=== PATIENT | female | born 1935 | race Caucasian/White ===

== ENCOUNTER 2017-05-21 23:03 | Inpatient (IN) | payer MEDICARE ==
[~2017-05-21] VITALS: Ht 162.6 cm; Wt 83.9 kg
[~2017-05-21 23:03] MED LIST: ACET325T14 PO; ALLEGRA PO; CITA20TA5 PO; FENO160T PO; FEXO180T72 PO; FOLIC ACID PO; FURO-93 PO; GLYB1TAB12 PO; IBUP200C5 PO; IPRA15SP INH; LEVO50TA5 PO; MV,C400T2 PO; OXYGEN INH; PANT40TA5 PO; POTA10TA11 PO; RANI150T8 PO; SULF500T36 PO; TRAM50TA2 PO; [UNRECOGNIZED DRUG - OTHER] NAS
[2017-05-21] MEDS ORDERED: ACETAMINOPHEN 325 MG TABLET PO ONE (23:30)
[2017-05-21] MEDS ORDERED: SODIUM CHLORIDE 0.9% 1,000ML IVBOLUS ONE (23:30)
[2017-05-21] MEDS ORDERED: ACETAMINOPHEN 325 MG TABLET ONE (23:30)
[2017-05-22 00:05] LABS: BASOPHILS # (AUTO) 0.03 x10^3/uL (0-0.1); BASOPHILS % (AUTO) 0 % (0-1); EOSINOPHILS # (AUTO) 0.01 x10^3/uL (0-0.4); EOSINOPHILS % (AUTO) 0 % (1-7); LYMPHOCYTES # (AUTO) 1.62 x10^3/uL (1-3.4); LYMPHOCYTES % (AUTO) 23 % (22-44); MD NO; MEAN CORPUSCULAR HEMOGLOBIN 27.2 pg (27.0-34.8); MEAN CORPUSCULAR HGB CONC 32.7 g/dL (32.4-35.8); MEAN CORPUSCULAR VOLUME 83.1 fL (80-100); MEAN PLATELET VOLUME 7.3 fL (7.4-10.4); MONOCYTES # (AUTO) 0.64 x10^3/uL (0.2-0.8); MONOCYTES % (AUTO) 9 % (2-9); NEUTROPHILS % (AUTO) 68 % (42-75); PLATELET COUNT 215 x10^3/uL (130-400); RED BLOOD COUNT 3.46 x10^6/uL (3.82-5.3)
[2017-05-22 00:13] LABS: CULTURE INDICATED? YES; MICROSCOPIC INDICATED
[2017-05-22 00:19] LABS: ALANINE AMINOTRANSFERASE 21 U/L (12-78); ALBUMIN 3.5 g/dL (3.4-5.0); ANION GAP 7 mmol/L (5-15); CALCIUM 9.2 mg/dL (8.5-10.1); CHLORIDE 100 mmol/L (98-107); CREATININE 0.81 mg/dL (0.55-1.02)
[2017-05-22 00:23] LABS: ALKALINE PHOSPHATASE 58 U/L (45-117); BILIRUBIN,TOTAL 0.5 mg/dL (0.2-1.0); TOTAL PROTEIN 7.9 g/dL (6.4-8.2)
[2017-05-22] MEDS ORDERED: CEFTRIAXONE PMX 1GM/50ML 50 ML ONE (00:58)
[2017-05-22] MEDS ORDERED: CEFTRIAXONE PMX 1GM/50ML 50 ML IV ONE (01:00)
[2017-05-22 01:07] LABS: RAPID INFLUENZA A POSITIVE (Negative); RAPID INFLUENZA B Negative (Negative)
[2017-05-22] MEDS ORDERED: OSELTAMIVIR 75 MG CAPSULE PO ONE (01:30)
[2017-05-22] MEDS ORDERED: LABETALOL 5MG/ML, 20ML IVPush PRN (03:00)
[2017-05-22] MEDS ORDERED: TEMAZEPAM 15 MG CAPSULE PO PRN (03:00)
[2017-05-22] MEDS ORDERED: DOCUSATE 100 MG CAPSULE PO PRN (03:00)
[2017-05-22] MEDS ORDERED: ONDANSETRON 2MG/ML, 2ML IVPush PRN (03:00)
[2017-05-22] MEDS ORDERED: POLYETHYLENE GLYCOL 17 GM PACKET PO PRN (03:00)
[2017-05-22] MEDS ORDERED: ONDANSETRON ODT 4 MG PO PRN (03:00)
[2017-05-22 03:03] VITALS: BP 114/45
[2017-05-22] MEDS ORDERED: ALBUTEROL/IPRATROPIUM 2.5MG/0.5MG, 3 ML ONE (03:09)
[2017-05-22 03:14] LABS: HEMOGLOBIN A1C 6.9 % (4.2-6.3)
[2017-05-22] MEDS ORDERED: ALBUTEROL/IPRATROPIUM 2.5MG/0.5MG, 3 ML NPPB PRN (03:30)
[2017-05-22] MEDS: ENOXAPARIN 40 MG/0.4 ML SQ SCH (04:15)
[2017-05-22] MEDS: POTASSIUM CHLORIDE 10 MEQ TABLET.ER PO SCH ×2 (04:15→08:11)
[2017-05-22] MEDS: LEVOTHYROXINE 50 MCG TABLET PO SCH (05:30)
[2017-05-22] MEDS: ALBUTEROL/IPRATROPIUM 2.5MG/0.5MG, 3 ML NPPB SCH ×4 (06:45→19:55)
[2017-05-22 07:12] VITALS: BP 128/52
[2017-05-22] MEDS: PANTOPROZOLE 40MG TABLET PO SCH (08:11)
[2017-05-22] MEDS: FENOFIBRATE 145 MG TABLET PO SCH (08:11)
[2017-05-22] MEDS: OSELTAMIVIR 30 MG CAPSULE PO SCH ×2 (08:11→20:50)
[2017-05-22] MEDS ORDERED: FENOFIBRATE 145 MG TABLET PO SCH (09:00)
[2017-05-22] MEDS: INSULIN ASPART 100 UNITS/ML, PEN SQ-INSULIN SCH ×4 (09:23→20:51)
[2017-05-22 14:25] VITALS: BP 119/61
[2017-05-22 20:16] LABS: OCCULT BLOOD NEGATIVE (NEGATIVE)
[2017-05-22] MEDS: CITALOPRAM 20 MG TABLET PO SCH (20:50)
[2017-05-22 22:06] VITALS: BP 90/52
[2017-05-22 22:30] VITALS: BP 105/60
[2017-05-22] MEDS: ACETAMINOPHEN 325 MG TABLET PO PRN (23:11)
[2017-05-23] MEDS ORDERED: CEFTRIAXONE PMX 1GM/50ML 50 ML IV SCH (01:00)
[2017-05-23] MEDS: GUAIFENESIN/DM 200-20MG, 10ML UDC PO PRN ×3 (01:40→22:23)
[2017-05-23] MEDS: CEFTRIAXONE 1,000 MG in SODIUM CHLORIDE 0.9% 50 ML IV SCH (01:40)
[2017-05-23 04:00] VITALS: BP 128/55
[2017-05-23] MEDS: ENOXAPARIN 40 MG/0.4 ML SQ SCH (04:06)
[2017-05-23 05:10] LABS: BASOPHILS # (AUTO) 0.02 x10^3/uL (0-0.1); BASOPHILS % (AUTO) 0 % (0-1); EOSINOPHILS # (AUTO) 0.07 x10^3/uL (0-0.4); EOSINOPHILS % (AUTO) 2 % (1-7); LYMPHOCYTES # (AUTO) 1.41 x10^3/uL (1-3.4); LYMPHOCYTES % (AUTO) 32 % (22-44); MD NO; MEAN CORPUSCULAR HEMOGLOBIN 26.9 pg (27.0-34.8); MEAN CORPUSCULAR HGB CONC 32.7 g/dL (32.4-35.8); MEAN CORPUSCULAR VOLUME 82.5 fL (80-100); MEAN PLATELET VOLUME 7.4 fL (7.4-10.4); MONOCYTES # (AUTO) 0.42 x10^3/uL (0.2-0.8); MONOCYTES % (AUTO) 10 % (2-9); NEUTROPHILS # (AUTO) 2.44 x10^3/uL (1.8-6.8); NEUTROPHILS % (AUTO) 56 % (42-75); PLATELET COUNT 172 x10^3/uL (130-400); RED BLOOD COUNT 3.26 x10^6/uL (3.82-5.3); RED CELL DISTRIBUTION WIDTH 16.3 % (9.6-15.2)
[2017-05-23 05:11] LABS: CHLORIDE 105 mmol/L (98-107)
[2017-05-23] MEDS: LEVOTHYROXINE 50 MCG TABLET PO SCH (05:34)
[2017-05-23 05:36] LABS: % IRON SATURATION 9 % (20-55); ALANINE AMINOTRANSFERASE 23 U/L (12-78); ALKALINE PHOSPHATASE 51 U/L (45-117); ANION GAP 6 mmol/L (5-15); BILIRUBIN,TOTAL 0.4 mg/dL (0.2-1.0); CREATININE 0.63 mg/dL (0.55-1.02); IRON LEVEL 27 mcg/dL (50-170); TOTAL IRON BINDING CAPACITY 317 mcg/dL (250-450); TOTAL PROTEIN 7.4 g/dL (6.4-8.2)
[2017-05-23] MEDS ORDERED: MAGNESIUM SULFATE PMX 2GM/50ML 50 ML IV ONE (07:30)
[2017-05-23] MEDS ORDERED: POTASSIUM CHLORIDE 20 MEQ TAB.ER.PRT PO ONE (07:30)
[2017-05-23 07:47] VITALS: BP 129/69
[2017-05-23] MEDS: INSULIN ASPART 100 UNITS/ML, PEN SQ-INSULIN SCH ×4 (07:50→20:41)
[2017-05-23] MEDS: ALBUTEROL/IPRATROPIUM 2.5MG/0.5MG, 3 ML NPPB SCH ×4 (07:54→19:52)
[2017-05-23] MEDS: FENOFIBRATE 145 MG TABLET PO SCH (08:50)
[2017-05-23] MEDS: POTASSIUM CHLORIDE 10 MEQ TABLET.ER PO SCH (08:50)
[2017-05-23] MEDS: OSELTAMIVIR 30 MG CAPSULE PO SCH ×2 (08:50→20:31)
[2017-05-23] MEDS: PANTOPROZOLE 40MG TABLET PO SCH (08:50)
[2017-05-23 14:01] VITALS: BP 100/55
[2017-05-23 19:39] VITALS: BP 131/65
[2017-05-23] MEDS: CITALOPRAM 20 MG TABLET PO SCH (20:31)
[2017-05-24] MEDS: CEFTRIAXONE 1,000 MG in SODIUM CHLORIDE 0.9% 50 ML IV SCH (01:48)
[2017-05-24 03:57] VITALS: BP 132/59
[2017-05-24] MEDS: ENOXAPARIN 40 MG/0.4 ML SQ SCH (04:12)
[2017-05-24] MEDS: ACETAMINOPHEN 325 MG TABLET PO PRN (04:13)
[2017-05-24] MEDS: LEVOTHYROXINE 50 MCG TABLET PO SCH (05:53)
[2017-05-24] MEDS: ALBUTEROL/IPRATROPIUM 2.5MG/0.5MG, 3 ML NPPB SCH ×4 (07:41→20:07)
[2017-05-24] MEDS: OSELTAMIVIR 30 MG CAPSULE PO SCH ×2 (08:50→20:56)
[2017-05-24] MEDS: FENOFIBRATE 145 MG TABLET PO SCH (08:50)
[2017-05-24] MEDS: POTASSIUM CHLORIDE 10 MEQ TABLET.ER PO SCH (08:50)
[2017-05-24] MEDS: PANTOPROZOLE 40MG TABLET PO SCH (08:50)
[2017-05-24] MEDS: INSULIN ASPART 100 UNITS/ML, PEN SQ-INSULIN SCH ×4 (08:50→20:57)
[2017-05-24 13:15] VITALS: BP 109/59
[2017-05-24] MEDS ORDERED: SULF1TAB24 PO (15:09)
[2017-05-24] MEDS ORDERED: OSEL75CA PO (15:09)
[2017-05-24] MEDS: GUAIFENESIN/DM 200-20MG, 10ML UDC PO PRN (17:00)
[2017-05-24 20:26] VITALS: BP 106/49
[2017-05-24] MEDS: CITALOPRAM 20 MG TABLET PO SCH (20:56)
[2017-05-25] MEDS: CEFTRIAXONE 1,000 MG in SODIUM CHLORIDE 0.9% 50 ML IV SCH (01:42)
[2017-05-25 02:59] VITALS: BP 132/68
[2017-05-25] MEDS: ENOXAPARIN 40 MG/0.4 ML SQ SCH (03:12)
[2017-05-25] MEDS: LEVOTHYROXINE 50 MCG TABLET PO SCH (05:44)
[2017-05-25] MEDS: ALBUTEROL/IPRATROPIUM 2.5MG/0.5MG, 3 ML NPPB SCH ×4 (06:33→19:37)
[2017-05-25 07:52] VITALS: BP 129/65
[2017-05-25] MEDS: INSULIN ASPART 100 UNITS/ML, PEN SQ-INSULIN SCH ×4 (08:02→21:00)
[2017-05-25] MEDS: FENOFIBRATE 145 MG TABLET PO SCH (08:02)
[2017-05-25] MEDS: PANTOPROZOLE 40MG TABLET PO SCH (08:02)
[2017-05-25] MEDS: OSELTAMIVIR 30 MG CAPSULE PO SCH ×2 (08:02→20:59)
[2017-05-25] MEDS: POTASSIUM CHLORIDE 10 MEQ TABLET.ER PO SCH (08:02)
[2017-05-25 10:09] LABS: ANION GAP 7 mmol/L (5-15); CALCIUM 8.7 mg/dL (8.5-10.1); CHLORIDE 102 mmol/L (98-107); CREATININE 0.75 mg/dL (0.55-1.02)
[2017-05-25] MEDS: GUAIFENESIN/DM 200-20MG, 10ML UDC PO PRN (11:41)
[2017-05-25 13:37] VITALS: BP 146/79
[2017-05-25] MEDS: ACETAMINOPHEN 325 MG TABLET PO PRN ×2 (14:08→21:08)
[2017-05-25 19:54] VITALS: BP 107/50
[2017-05-25] MEDS: CITALOPRAM 20 MG TABLET PO SCH (20:59)
[2017-05-25] MEDS: SULFAMETH./TRIMETHOPRIM DS 800MG/160MG TABLET PO SCH (20:59)
[2017-05-26 00:38] VITALS: BP 138/69
[2017-05-26] MEDS ORDERED: LORazepam 0.5MG TABLET ONE (00:55)
[2017-05-26] MEDS ORDERED: LORazepam 0.5MG TABLET PO ONE (01:00)
[2017-05-26] MEDS: ACETAMINOPHEN 325 MG TABLET PO PRN ×2 (01:01→12:15)
[2017-05-26] MEDS: ENOXAPARIN 40 MG/0.4 ML SQ SCH (06:17)
[2017-05-26] MEDS: LEVOTHYROXINE 50 MCG TABLET PO SCH (06:18)
[2017-05-26] MEDS: INSULIN ASPART 100 UNITS/ML, PEN SQ-INSULIN SCH ×2 (07:00→11:55)
[2017-05-26] MEDS: ALBUTEROL/IPRATROPIUM 2.5MG/0.5MG, 3 ML NPPB SCH ×3 (07:00→14:15)
[2017-05-26 09:40] VITALS: BP 152/73
[2017-05-26] MEDS ORDERED: SULF1TAB24 PO (10:03)
[2017-05-26] MEDS: PANTOPROZOLE 40MG TABLET PO SCH (10:19)
[2017-05-26] MEDS: POTASSIUM CHLORIDE 10 MEQ TABLET.ER PO SCH (10:19)
[2017-05-26] MEDS: OSELTAMIVIR 30 MG CAPSULE PO SCH (10:19)
[2017-05-26] MEDS: FENOFIBRATE 145 MG TABLET PO SCH (10:19)
[2017-05-26] MEDS: SULFAMETH./TRIMETHOPRIM DS 800MG/160MG TABLET PO SCH (10:19)
[2017-05-26 12:31] VITALS: BP 152/67
== END 2017-05-26 13:05 | DRG 193 ==
LOC: ED 05-22 00:32 → EDIP 05-22 01:21 → 5SO 05-22 02:45 → 4WST 05-22 08:37
PROVIDERS: ADMIT Internal Medicine; ATTEND Internal Medicine
PROC: 0T9B70Z Drainage of Bladder with Drainage Device, Via Natural or Artificial Opening (ICD-10-PCS; principal; 2017-05-21)
DX: J10.1 Influenza due to other identified influenza virus with other respiratory manifestations (principal); J96.21 Acute and chronic respiratory failure with hypoxia; G93.41 Metabolic encephalopathy; J44.1 Chronic obstructive pulmonary disease with (acute) exacerbation; E11.9 Type 2 diabetes mellitus without complications; B96.1 Klebsiella pneumoniae [K. pneumoniae] as the cause of diseases classified elsewhere; N39.0 Urinary tract infection, site not specified; Z99.81 Dependence on supplemental oxygen; B96.89 Other specified bacterial agents as the cause of diseases classified elsewhere; D64.9 Anemia, unspecified; E03.9 Hypothyroidism, unspecified; W01.0XXA Fall on same level from slipping, tripping and stumbling without subsequent striking against object, initial encounter; E87.6 Hypokalemia; F32.9 Major depressive disorder, single episode, unspecified; E86.0 Dehydration; K21.9 Gastro-esophageal reflux disease without esophagitis; R32 Unspecified urinary incontinence; Z87.891 Personal history of nicotine dependence; Z90.710 Acquired absence of both cervix and uterus; Z88.1 Allergy status to other antibiotic agents; Z88.8 Allergy status to other drugs, medicaments and biological substances; Y93.89 Activity, other specified; Y92.89 Other specified places as the place of occurrence of the external cause
CPT/HCPCS: 36415; 70450; 71045; 80048; 80053; 81001; 82272; 82607; 82728; 82962; 83036; 83540; 83550; 83605; 83735; 84100; 84145; 85025; 87077; 87086; 87186; 87400; 93005; 94640; 96365; J0696; J1650; J1815; J7620; Q0162; J3475; J7030

== ENCOUNTER → 2017-11-10 | Outpatient (CLI) | payer MEDICARE ==
[~2017-11-10] MED LIST changes: -CITA20TA5 PO; +CITA20TA6 PO; +GLYB-135 PO; -GLYB1TAB12 PO; +OSEL75CA PO; +RANI150T23 PO; -RANI150T8 PO; +SULF1TAB24 PO
== END | disposition home or self-care (01) ==
LOC: CARD 14:26
PROVIDERS: ATTEND Nurse Practitioner Family
DX: J43.9 Emphysema, unspecified (principal); G47.33 Obstructive sleep apnea (adult) (pediatric)
CPT/HCPCS: 94060; 94726; 94729

== ENCOUNTER 2018-05-17 18:42 | Inpatient (IN) | payer MEDICARE ==
[~2018-05-17] VITALS: Ht 162.6 cm; Wt 92.4 kg
[~2018-05-17 18:42] MED LIST changes: +IBUP-1623 PO; -IBUP200C5 PO
[2018-05-17] MEDS ORDERED: methylPREDNISolone SOD SUCC 125 MG/2 ML ONE (18:56)
[2018-05-17] MEDS ORDERED: SODIUM CHLORIDE FLUSH 10ML SYR IVF ONE (19:00)
[2018-05-17] MEDS ORDERED: SODIUM CHLORIDE 0.9% 1,000ML IVBOLUS ONE ×2 (19:00→20:00)
[2018-05-17] MEDS ORDERED: methylPREDNISolone SOD SUCC 125 MG/2 ML IVP ONE (19:00)
--- NOTE | 2018-05-17 19:20 | NUR ---
LABS DRAWN, PT MEDICATED. PT ON OPTIFLOW NOW. PT GIVEN MULTIPLE WARM BLANKETS PER REQUEST. POC DISCUSSED. PT DENIES FURTHER NEEDS AT THIS TIME.
[2018-05-17 19:28] LABS: BASOPHILS # (AUTO) 0.01 x10^3/uL (0-0.1); BASOPHILS % (AUTO) 0 % (0-1); EOSINOPHILS # (AUTO) 0.01 x10^3/uL (0-0.4); EOSINOPHILS % (AUTO) 0 % (1-7); LYMPHOCYTES # (AUTO) 1.57 x10^3/uL (1-3.4); LYMPHOCYTES % (AUTO) 25 % (22-44); MD NO; MEAN CORPUSCULAR HEMOGLOBIN 29.6 pg (27.0-34.8); MEAN CORPUSCULAR HGB CONC 33.4 g/dL (32.4-35.8); MEAN CORPUSCULAR VOLUME 88.4 fL (80-100); MEAN PLATELET VOLUME 7.6 fL (7.4-10.4); MONOCYTES # (AUTO) 0.12 x10^3/uL (0.2-0.8); MONOCYTES % (AUTO) 2 % (2-9); NEUTROPHILS # (AUTO) 4.61 x10^3/uL (1.8-6.8); NEUTROPHILS % (AUTO) 73 % (42-75); PLATELET COUNT 155 x10^3/uL (130-400); RED BLOOD COUNT 3.17 x10^6/uL (3.82-5.3)
[2018-05-17 19:35] LABS: INTERNATIONAL NORMALIZED RATIO 1.18 (0.93-1.1); PROTHROMBIN TIME 12.4 Seconds (9.6-11.5)
[2018-05-17 19:36] LABS: ALANINE AMINOTRANSFERASE 25 U/L (12-78); ANION GAP 13 mmol/L (5-15); CHLORIDE 105 mmol/L (98-107); CREATININE 1.32 mg/dL (0.55-1.02)
[2018-05-17] MEDS ORDERED: ALBUTEROL SULFATE 2.5 MG/3 ML ONE (19:36)
[2018-05-17 19:41] LABS: ALKALINE PHOSPHATASE 50 U/L (45-117); BILIRUBIN,TOTAL 0.9 mg/dL (0.2-1.0); TOTAL PROTEIN 6.2 g/dL (6.4-8.2)
[2018-05-17] MEDS ORDERED: CEFTRIAXONE PMX 1GM/50ML 50 ML ONE (19:42)
--- NOTE | 2018-05-17 19:51 | NUR ---
FLU SWAB OBTAINED AND TUBED TO LAB. ABX INFUSING POST BCX2. POC DISCUSSED. PT DENIES FURTHER NEEDS AT THIS TIME.
[2018-05-17] MEDS ORDERED: CEFTRIAXONE PMX 1GM/50ML 50 ML IV ONE ×2 (20:00→22:00)
[2018-05-17] MEDS ORDERED: AZITHROMYCIN 500 MG in SODIUM CHLORIDE 0.9% 250 ML IV ONE (20:00)
[2018-05-17] MEDS ORDERED: SITA1TAB PO (20:13)
[2018-05-17] MEDS ORDERED: HEPARIN 25,000 UNITS/500ML PMX 500 ML ONE (20:20)
[2018-05-17] MEDS ORDERED: HEPARIN 5,000 UNITS/ML, 1ML ONE (20:20)
[2018-05-17 20:25] LABS: RAPID INFLUENZA A Negative (Negative); RAPID INFLUENZA B Negative (Negative)
[2018-05-17] MEDS ORDERED: HEPARIN 5,000 UNITS/ML, 1ML IV ONE ×2 (20:30)
[2018-05-17] MEDS ORDERED: HEPARIN 25,000 UNITS/500ML PMX 500 ML IV PRN ×2 (20:30)
[2018-05-17] MEDS ORDERED: HEPARIN 5,000 UNITS/ML, 1ML IV PRN ×2 (20:30)
--- NOTE | 2018-05-17 21:15 | NUR ---
MD AWARE OF PTS DECREASING BP. CONSENT FOR CENTRAL LINE SIGNED BY PTS, THIS RN, AND MD. POC DISCUSSED. AWAITING MD FOR CENTRAL LINE.
--- NOTE | 2018-05-17 21:36 | NUR ---
ADMITTING MD AT BEDSIDE
[2018-05-17] MEDS: SODIUM CHLORIDE 0.9% 1,000 ML IV SCH (21:51)
[2018-05-17] MEDS ORDERED: ONDANSETRON ODT 4 MG PO PRN (22:00)
[2018-05-17] MEDS: methylPREDNISolone SOD SUCC 125 MG/2 ML IVPush SCH (22:00)
[2018-05-17] MEDS ORDERED: OXYcodone IR 5MG TABLET PO PRN (22:00)
[2018-05-17] MEDS ORDERED: POLYETHYLENE GLYCOL 17 GM PACKET PO PRN (22:00)
[2018-05-17] MEDS ORDERED: hydrALAzine 20 MG/ML, 1ML IVPush PRN (22:00)
[2018-05-17] MEDS ORDERED: PROMETHAZINE 25 MG/ML, 1ML IM PRN (22:00)
[2018-05-17] MEDS ORDERED: morphine SULFATE 10 MG/ML, 1ML IVPush PRN (22:00)
[2018-05-17] MEDS ORDERED: LABETALOL 5MG/ML, 20ML IVPush PRN (22:00)
[2018-05-17] MEDS ORDERED: DOCUSATE 100 MG CAPSULE PO PRN (22:00)
[2018-05-17] MEDS ORDERED: ONDANSETRON 2MG/ML, 2ML IVPush PRN (22:00)
[2018-05-17] MEDS ORDERED: NITROGLYCERIN 0.4 MG BOTTLE (25 TABS) SL PRN (22:00)
[2018-05-17] MEDS ORDERED: BISACODYL 10 MG SUPP PR PRN (22:00)
[2018-05-17 22:21] LABS: FREE T4 (FREE THYROXINE) 1.38 ng/dL (0.76-1.46); THYROID STIMULATING HORMONE 0.972 mIU/L (0.358-3.740)
--- NOTE | 2018-05-17 22:26 | NUR ---
PT TO CT AT THIS TIME
[2018-05-17] MEDS: INSULIN LISPRO 100 UNITS/ML, PEN SQ-INSULIN SCH (22:30)
--- NOTE | 2018-05-17 22:38 | NUR ---
PT HAS RETURNED FROM CT
--- NOTE | 2018-05-17 23:02 | NUR ---
CENTRAL LINE PLACED BY DR MOORE. RAD CALLED FOR CONFIRMATION CXR
[2018-05-18] MEDS ORDERED: NOREPINEPHRINE 4 MG in SODIUM CHLORIDE 0.9% 246 ML IV PRN
--- NOTE | 2018-05-18 00:02 | NUR ---
MED REQUEST TUBED TO PHARM. PT SLEEPING INTERMITENTLY, FAMILY AT BEDSIDE.
--- NOTE | 2018-05-18 00:37 | NUR ---
CRITICAL TROP CALLED TO DR EARL. NO NEW ORDERS TO BE PLACED AT THIS TIME.
[2018-05-18] MEDS ORDERED: ALBUTEROL/IPRATROPIUM 2.5MG/0.5MG, 3 ML ONE (00:43)
--- NOTE | 2018-05-18 01:30 | NUR ---
TASK RN: PT ASSISTED TO [facility]. PT APPEARS IN MILD RESPIRATORY DISTRESS, SPEAKING IN 3-5 WORD SENTENCES. OPTI FLOW IN PLACE. SPO2 >90%. BP/SPO2/ECG MONITORING IN PLACE. SINUS TACH ON MONITOR. FAMILY AT BEDSIDE.
[2018-05-18] MEDS ORDERED: ATOR20TA PO (02:06)
[2018-05-18] MEDS ORDERED: METF500T17 PO (02:06)
[2018-05-18] MEDS ORDERED: ZOLP-413 PO (02:06)
[2018-05-18] MEDS ORDERED: PHENERGAN CODEINE PO (02:06)
[2018-05-18] MEDS ORDERED: HYDR-3240 PO (02:06)
[2018-05-18] MEDS ORDERED: GABA300C PO (02:06)
--- NOTE | 2018-05-18 02:07 | NUR ---
PTS DAIANA PROVIDED UPDATED MED REC. MED REC UPDATED IN COMPUTER.
[2018-05-18 03:00] VITALS: BP 104/56
[2018-05-18] MEDS: ACETAMINOPHEN 325 MG TABLET PO PRN ×3 (03:00→21:27)
[2018-05-18] MEDS ORDERED: ALBUTEROL/IPRATROPIUM 2.5MG/0.5MG, 3 ML NPPB PRN (03:00)
[2018-05-18] MEDS: ALBUTEROL/IPRATROPIUM 2.5MG/0.5MG, 3 ML NPPB SCH ×6 (03:00→23:59)
[2018-05-18 04:00] VITALS: BP 101/51
[2018-05-18] MEDS ORDERED: HEPARIN 5,000 UNITS/ML, 1ML ONE (04:19)
[2018-05-18] MEDS: methylPREDNISolone SOD SUCC 125 MG/2 ML IVPush SCH ×4 (04:24→22:52)
[2018-05-18] MEDS ORDERED: HEPARIN 5,000 UNITS/ML, 1ML IV ONE (04:30)
[2018-05-18] MEDS ORDERED: HEPARIN 5,000 UNITS/ML, 1ML IV PRN (04:30)
[2018-05-18] MEDS ORDERED: HEPARIN 25,000 UNITS/500ML PMX 500 ML IV PRN ×3 (04:30)
[2018-05-18] MEDS: HEPARIN 5,000 UNITS/ML, 1ML IV PRN ×3 (04:35→18:44)
[2018-05-18] MEDS: SODIUM CHLORIDE 0.9% 1,000 ML IV SCH ×3 (04:40→23:41)
[2018-05-18 05:13] LABS: MEAN CORPUSCULAR HEMOGLOBIN 28.1 pg (27.0-34.8); MEAN CORPUSCULAR HGB CONC 31.5 g/dL (32.4-35.8); MEAN CORPUSCULAR VOLUME 89.2 fL (80-100); MEAN PLATELET VOLUME 7.8 fL (7.4-10.4); PLATELET COUNT 126 x10^3/uL (130-400); RED BLOOD COUNT 2.82 x10^6/uL (3.82-5.3); RED CELL DISTRIBUTION WIDTH 17.5 % (9.6-15.2)
[2018-05-18 05:25] LABS: CHLORIDE 106 mmol/L (98-107)
[2018-05-18 05:38] LABS: MD YES
[2018-05-18 05:42] LABS: BAND#(MANUAL) 1.74 x10^3/uL; BANDS%(MANUAL) 26 % (0-7); LYMPH#(MANUAL) 0.94 x10^3/uL (1-3.4); LYMPHS% (MANUAL) 14 % (22-44); METAMYELOCYTES# (MANUAL) 0.07 x10^3/uL (0-0); METAMYELOCYTES% (MANUAL) 1 % (0-1); SEG#(MANUAL) 3.95 x10^3/uL (1.8-6.8); SEGS% (MANUAL) 59 % (42-75)
[2018-05-18 05:44] LABS: ANISOCYTOSIS 1+
[2018-05-18 05:48] LABS: <PLATELET ESTIMATE> ADEQUATE; <PLT MORPHOLOGY> NORMAL PLT MORPH
[2018-05-18 05:52] LABS: ALANINE AMINOTRANSFERASE 22 U/L (12-78); ALBUMIN 2.6 g/dL (3.4-5.0); ALKALINE PHOSPHATASE 26 U/L (45-117); ANION GAP 13 mmol/L (5-15); BILIRUBIN,TOTAL 0.6 mg/dL (0.2-1.0); CALCIUM 7.5 mg/dL (8.5-10.1); CHOL/HDL RATIO 2.2; CHOLESTEROL, TOTAL 117 mg/dL (140-239); CREATININE 1.13 mg/dL (0.55-1.02); HDL CHOL % 46 % (28-40); HDL CHOLESTEROL (DIRECT) 54 mg/dL (40-60); LDL CHOLESTEROL,CALCULATED 37 mg/dL (54-169); LDL/HDL RATIO 0.7 (0.5-3.0); TOTAL PROTEIN 5.6 g/dL (6.4-8.2); TRIGLYCERIDES 131 mg/dL (50-200); VLDL CHOLESTEROL 26 mg/dL (0-25)
[2018-05-18] MEDS ORDERED: ASPIRIN 325 MG TABLET EC PO SCH (06:00)
[2018-05-18] MEDS: LEVOTHYROXINE 50 MCG TABLET PO SCH (06:45)
[2018-05-18] MEDS: INSULIN LISPRO 100 UNITS/ML, PEN SQ-INSULIN SCH ×4 (07:10→20:28)
[2018-05-18 10:20] LABS: CULTURE INDICATED? YES; MICROSCOPIC INDICATED
[2018-05-18] MEDS ORDERED: MAGNESIUM SULFATE 4 GM in SODIUM CHLORIDE 0.9% 100 ML IV ONE (12:00)
[2018-05-18] MEDS ORDERED: MAGNESIUM SULFATE PMX 4GM/100M 100 ML IV ONE (12:10)
[2018-05-18] MEDS: MEROPENEM 1 GM in SODIUM CHLORIDE 0.9% 100 ML IV SCH ×2 (12:51→20:27)
[2018-05-18] MEDS: LINEZOLID PMX 600MG/300ML 300 ML IV SCH (12:52)
[2018-05-18] MEDS: INSULIN GLARGINE 100 UNITS/ML, PEN SQ-INSULIN SCH (13:05)
[2018-05-18] MEDS ORDERED: CEFTRIAXONE PMX 2GM/50ML 50 ML IV SCH (19:00)
[2018-05-18] MEDS ORDERED: AZITHROMYCIN 500 MG in SODIUM CHLORIDE 0.9% 250 ML IV SCH (20:00)
[2018-05-18] MEDS: ATORVASTATIN 20 MG TABLET PO SCH (20:28)
[2018-05-19] MEDS: INSULIN GLARGINE 100 UNITS/ML, PEN SQ-INSULIN SCH ×2 (01:03→11:23)
[2018-05-19] MEDS: HEPARIN 5,000 UNITS/ML, 1ML IV PRN (01:13)
[2018-05-19] MEDS: ALBUTEROL/IPRATROPIUM 2.5MG/0.5MG, 3 ML NPPB SCH ×5 (03:00→18:26)
[2018-05-19] MEDS: LINEZOLID PMX 600MG/300ML 300 ML IV SCH ×2 (03:24→14:33)
[2018-05-19 04:00] VITALS: BP 115/51
[2018-05-19] MEDS: methylPREDNISolone SOD SUCC 125 MG/2 ML IVPush SCH ×2 (04:18→10:28)
[2018-05-19 04:43] LABS: MEAN CORPUSCULAR HEMOGLOBIN 29.4 pg (27.0-34.8); MEAN CORPUSCULAR HGB CONC 33.2 g/dL (32.4-35.8); MEAN CORPUSCULAR VOLUME 88.6 fL (80-100); MEAN PLATELET VOLUME 7.9 fL (7.4-10.4); PLATELET COUNT 109 x10^3/uL (130-400); RED BLOOD COUNT 2.54 x10^6/uL (3.82-5.3); RED CELL DISTRIBUTION WIDTH 17.3 % (9.6-15.2)
[2018-05-19 04:51] LABS: ALBUMIN 2.4 g/dL (3.4-5.0); ANION GAP 8 mmol/L (5-15); CALCIUM 7.5 mg/dL (8.5-10.1); CHLORIDE 108 mmol/L (98-107)
[2018-05-19 05:10] LABS: ALANINE AMINOTRANSFERASE 22 U/L (12-78); ALKALINE PHOSPHATASE 30 U/L (45-117); BILIRUBIN,TOTAL 0.8 mg/dL (0.2-1.0); CREATININE 0.69 mg/dL (0.55-1.02); TOTAL PROTEIN 5.8 g/dL (6.4-8.2)
[2018-05-19] MEDS: ACETAMINOPHEN 325 MG TABLET PO PRN ×2 (05:14→18:24)
[2018-05-19] MEDS: ASPIRIN 81 MG TABLET EC PO SCH (05:15)
[2018-05-19] MEDS: LEVOTHYROXINE 50 MCG TABLET PO SCH (05:15)
[2018-05-19] MEDS: MEROPENEM 1 GM in SODIUM CHLORIDE 0.9% 100 ML IV SCH ×2 (05:38→13:09)
[2018-05-19 05:43] LABS: MD YES
[2018-05-19 05:57] LABS: BAND#(MANUAL) 1.86 x10^3/uL; BANDS%(MANUAL) 31 % (0-7); LYMPH#(MANUAL) 0.54 x10^3/uL (1-3.4); LYMPHS% (MANUAL) 9 % (22-44); MONOS#(MANUAL) 0.36 x10^3/uL (0.3-2.7); MONOS% (MANUAL) 6 % (2-9); SEG#(MANUAL) 3.24 x10^3/uL (1.8-6.8); SEGS% (MANUAL) 54 % (42-75)
[2018-05-19 05:59] LABS: <PLATELET ESTIMATE> DECREASED; OVALOCYTES 1+; POLYCHROMASIA 1+
[2018-05-19 06:00] LABS: <PLT MORPHOLOGY> NORMAL PLT MORPH
[2018-05-19] MEDS: INSULIN LISPRO 100 UNITS/ML, PEN SQ-INSULIN SCH ×4 (08:06→20:28)
[2018-05-19] MEDS ORDERED: OMNIPAQUE 350 MG/ML, 100ML BOTTLE ONE (11:55)
[2018-05-19] MEDS: SODIUM CHLORIDE 0.9% 1,000 ML IV SCH (13:10)
[2018-05-19] MEDS ORDERED: INSULIN GLARGINE 100 UNITS/ML, PEN SQ-INSULIN ONE (15:30)
[2018-05-19] MEDS: methylPREDNISolone SOD SUCC 40 MG/ML IVPush SCH (18:10)
[2018-05-19] MEDS: FAMOTIDINE 20 MG/2 ML IVPush SCH (18:10)
[2018-05-19] MEDS: ATORVASTATIN 20 MG TABLET PO SCH (20:20)
[2018-05-20] MEDS: ACETAMINOPHEN 325 MG TABLET PO PRN ×2 (00:14→19:19)
[2018-05-20] MEDS: INSULIN GLARGINE 100 UNITS/ML, PEN SQ-INSULIN SCH ×3 (00:17→23:47)
[2018-05-20] MEDS ORDERED: MEROPENEM 1 GM in SODIUM CHLORIDE 0.9% 100 ML IV SCH (01:00)
[2018-05-20] MEDS: LINEZOLID PMX 600MG/300ML 300 ML IV SCH (02:29)
[2018-05-20] MEDS: methylPREDNISolone SOD SUCC 40 MG/ML IVPush SCH ×2 (02:33→10:38)
[2018-05-20] MEDS ORDERED: PSEUDOEPHEDRINE 30 MG TABLET PO PRN (03:30)
[2018-05-20 04:02] LABS: ALANINE AMINOTRANSFERASE 20 U/L (12-78); ALBUMIN 2.4 g/dL (3.4-5.0); ANION GAP 6 mmol/L (5-15); CALCIUM 7.6 mg/dL (8.5-10.1); CHLORIDE 109 mmol/L (98-107); CREATININE 0.63 mg/dL (0.55-1.02)
[2018-05-20 04:05] LABS: ALKALINE PHOSPHATASE 37 U/L (45-117); BILIRUBIN,TOTAL 0.5 mg/dL (0.2-1.0); TOTAL PROTEIN 5.9 g/dL (6.4-8.2)
[2018-05-20 04:07] LABS: MEAN CORPUSCULAR HEMOGLOBIN 29.5 pg (27.0-34.8); MEAN CORPUSCULAR HGB CONC 33.3 g/dL (32.4-35.8); MEAN CORPUSCULAR VOLUME 88.6 fL (80-100); MEAN PLATELET VOLUME 7.7 fL (7.4-10.4); PLATELET COUNT 117 x10^3/uL (130-400); RED BLOOD COUNT 2.53 x10^6/uL (3.82-5.3); RED CELL DISTRIBUTION WIDTH 17.8 % (9.6-15.2)
[2018-05-20 04:59] LABS: MD YES
[2018-05-20 05:00] VITALS: BP 134/65
[2018-05-20 05:04] LABS: BAND#(MANUAL) 0.53 x10^3/uL; BANDS%(MANUAL) 9 % (0-7); LYMPH#(MANUAL) 0.94 x10^3/uL (1-3.4); LYMPHS% (MANUAL) 16 % (22-44); MONOS#(MANUAL) 0.06 x10^3/uL (0.3-2.7); MONOS% (MANUAL) 1 % (2-9); SEG#(MANUAL) 4.37 x10^3/uL (1.8-6.8); SEGS% (MANUAL) 74 % (42-75)
[2018-05-20 05:05] LABS: <PLATELET ESTIMATE> DECREASED; <PLT MORPHOLOGY> NORMAL PLT MORPH; ANISOCYTOSIS 1+; OVALOCYTES 1+; POLYCHROMASIA 1+
[2018-05-20] MEDS: LEVOTHYROXINE 50 MCG TABLET PO SCH (06:39)
[2018-05-20] MEDS: ASPIRIN 81 MG TABLET EC PO SCH (06:39)
[2018-05-20] MEDS: ALBUTEROL/IPRATROPIUM 2.5MG/0.5MG, 3 ML NPPB SCH ×4 (07:00→20:56)
[2018-05-20] MEDS: INSULIN LISPRO 100 UNITS/ML, PEN SQ-INSULIN SCH ×4 (08:18→20:42)
[2018-05-20] MEDS: FAMOTIDINE 20 MG/2 ML IVPush SCH (08:21)
[2018-05-20] MEDS ORDERED: FUROSEMIDE 20 MG/2 ML IV ONE (12:00)
[2018-05-20] MEDS ORDERED: POTASSIUM PHOSPHATE 44 MEQ in SODIUM CHLORIDE 0.9% 500 ML IV ONE (12:00)
[2018-05-20] MEDS ORDERED: POTASSIUM CHLORIDE 20 MEQ TAB.ER.PRT PO ONE (12:00)
[2018-05-20] MEDS ORDERED: ALBUTEROL SULFATE 2.5 MG/3 ML NPPB PRN (12:30)
[2018-05-20] MEDS: CEFTRIAXONE PMX 2GM/50ML 50 ML IV SCH (13:05)
[2018-05-20] MEDS: FLUCONAZOLE 100MG/50ML 100 MG in BAG 1 EACH IV SCH (13:48)
[2018-05-20] MEDS: DOXYCYCLINE 100 MG in DEXTROSE 5% 250 ML IV SCH (14:56)
[2018-05-20 15:22] VITALS: BP 129/76
[2018-05-20 19:02] VITALS: BP 118/67
[2018-05-20] MEDS: ATORVASTATIN 20 MG TABLET PO SCH (20:42)
[2018-05-21 00:56] VITALS: BP 136/66
[2018-05-21] MEDS: DOXYCYCLINE 100 MG in DEXTROSE 5% 250 ML IV SCH ×2 (02:51→15:00)
[2018-05-21] MEDS: ALBUTEROL/IPRATROPIUM 2.5MG/0.5MG, 3 ML NPPB SCH ×4 (03:10→18:36)
[2018-05-21 05:29] LABS: BASOPHILS # (AUTO) 0.01 x10^3/uL (0-0.1); BASOPHILS % (AUTO) 0 % (0-1); EOSINOPHILS # (AUTO) 0.01 x10^3/uL (0-0.4); EOSINOPHILS % (AUTO) 0 % (1-7); LYMPHOCYTES # (AUTO) 0.62 x10^3/uL (1-3.4); LYMPHOCYTES % (AUTO) 12 % (22-44); MD NO; MEAN CORPUSCULAR HEMOGLOBIN 29.2 pg (27.0-34.8); MEAN CORPUSCULAR VOLUME 88.5 fL (80-100); MONOCYTES # (AUTO) 0.26 x10^3/uL (0.2-0.8); MONOCYTES % (AUTO) 5 % (2-9); NEUTROPHILS # (AUTO) 4.24 x10^3/uL (1.8-6.8); NEUTROPHILS % (AUTO) 83 % (42-75); PLATELET COUNT 133 x10^3/uL (130-400); RED BLOOD COUNT 2.75 x10^6/uL (3.82-5.3); RED CELL DISTRIBUTION WIDTH 17.1 % (9.6-15.2)
[2018-05-21] MEDS: LEVOTHYROXINE 50 MCG TABLET PO SCH (05:36)
[2018-05-21] MEDS: ASPIRIN 81 MG TABLET EC PO SCH (05:36)
[2018-05-21 05:42] LABS: ANION GAP 8 mmol/L (5-15); CALCIUM 8.7 mg/dL (8.5-10.1); CHLORIDE 108 mmol/L (98-107)
[2018-05-21 05:44] LABS: CREATININE 0.64 mg/dL (0.55-1.02)
[2018-05-21] MEDS: INSULIN LISPRO 100 UNITS/ML, PEN SQ-INSULIN SCH ×4 (07:08→20:40)
[2018-05-21 07:16] VITALS: BP 149/76
[2018-05-21] MEDS: ENOXAPARIN 40 MG/0.4 ML SQ SCH (08:17)
[2018-05-21] MEDS: INSULIN GLARGINE 100 UNITS/ML, PEN SQ-INSULIN SCH ×2 (08:17→20:41)
[2018-05-21] MEDS: FAMOTIDINE 20 MG TABLET PO SCH (08:18)
[2018-05-21] MEDS: CEFTRIAXONE PMX 2GM/50ML 50 ML IV SCH (11:19)
[2018-05-21 13:01] VITALS: BP 148/79
[2018-05-21] MEDS ORDERED: ORAJEL 7GM TUBE MM PRN (13:30)
[2018-05-21] MEDS: ACETAMINOPHEN 325 MG TABLET PO PRN (14:06)
[2018-05-21] MEDS: FLUCONAZOLE 100MG/50ML 100 MG in BAG 1 EACH IV SCH (14:08)
[2018-05-21] MEDS ORDERED: PHENYLEPHRINE NASAL 0.25%, 15ML SPRAY NAS PRN (16:30)
[2018-05-21 20:00] VITALS: BP 151/63
[2018-05-21] MEDS: CITALOPRAM 20 MG TABLET PO SCH (20:28)
[2018-05-21] MEDS: GABAPENTIN 300 MG CAPSULE PO SCH (20:29)
[2018-05-21] MEDS: ATORVASTATIN 20 MG TABLET PO SCH (20:29)
[2018-05-22 00:53] VITALS: BP 128/71
[2018-05-22] MEDS: DOXYCYCLINE 100 MG in DEXTROSE 5% 250 ML IV SCH ×2 (03:01→15:22)
[2018-05-22] MEDS: ALBUTEROL/IPRATROPIUM 2.5MG/0.5MG, 3 ML NPPB SCH ×4 (03:30→20:17)
[2018-05-22] MEDS: LEVOTHYROXINE 50 MCG TABLET PO SCH (05:29)
[2018-05-22] MEDS: ASPIRIN 81 MG TABLET EC PO SCH (05:32)
[2018-05-22 07:21] VITALS: BP 146/74
[2018-05-22] MEDS: INSULIN LISPRO 100 UNITS/ML, PEN SQ-INSULIN SCH ×4 (08:35→20:06)
[2018-05-22] MEDS: INSULIN GLARGINE 100 UNITS/ML, PEN SQ-INSULIN SCH ×2 (08:35→20:06)
[2018-05-22] MEDS: ENOXAPARIN 40 MG/0.4 ML SQ SCH (08:37)
[2018-05-22] MEDS: FAMOTIDINE 20 MG TABLET PO SCH (08:37)
[2018-05-22] MEDS: SULFASALAZINE PO SCH (08:37)
[2018-05-22] MEDS: FLUTICASONE NASAL SPRAY 16GM NAS SCH (08:38)
[2018-05-22] MEDS: GABAPENTIN 300 MG CAPSULE PO SCH ×2 (08:38→20:04)
[2018-05-22] MEDS ORDERED: REGADENOSON 0.4 MG/5 ML SYRINGE ONE (09:22)
[2018-05-22] MEDS: metFORMIN 500 MG TABLET PO SCH (10:46)
[2018-05-22] MEDS: CEFTRIAXONE PMX 2GM/50ML 50 ML IV SCH (11:53)
[2018-05-22] MEDS: FUROSEMIDE 20 MG/2 ML IV SCH (11:57)
[2018-05-22 13:19] VITALS: BP 145/81
[2018-05-22] MEDS ORDERED: HYDROcodone/APAP 5/325 TABLET PO PRN (13:30)
[2018-05-22] MEDS: FLUCONAZOLE 100MG/50ML 100 MG in BAG 1 EACH IV SCH (13:53)
[2018-05-22] MEDS: CITALOPRAM 20 MG TABLET PO SCH (20:04)
[2018-05-22] MEDS: ATORVASTATIN 20 MG TABLET PO SCH (20:04)
[2018-05-22 21:02] VITALS: BP 103/55
[2018-05-23 00:14] VITALS: BP 144/73
[2018-05-23] MEDS: ALBUTEROL/IPRATROPIUM 2.5MG/0.5MG, 3 ML NPPB SCH ×3 (03:00→13:50)
[2018-05-23] MEDS: DOXYCYCLINE 100 MG in DEXTROSE 5% 250 ML IV SCH ×2 (03:03→15:45)
[2018-05-23 05:19] LABS: BASOPHILS # (AUTO) 0.02 x10^3/uL (0-0.1); BASOPHILS % (AUTO) 0 % (0-1); EOSINOPHILS % (AUTO) 2 % (1-7); LYMPHOCYTES # (AUTO) 1.49 x10^3/uL (1-3.4); LYMPHOCYTES % (AUTO) 29 % (22-44); MD NO; MEAN CORPUSCULAR HEMOGLOBIN 29.5 pg (27.0-34.8); MEAN CORPUSCULAR HGB CONC 33.6 g/dL (32.4-35.8); MEAN PLATELET VOLUME 6.8 fL (7.4-10.4); MONOCYTES # (AUTO) 0.28 x10^3/uL (0.2-0.8); MONOCYTES % (AUTO) 5 % (2-9); NEUTROPHILS # (AUTO) 3.31 x10^3/uL (1.8-6.8); NEUTROPHILS % (AUTO) 64 % (42-75); PLATELET COUNT 179 x10^3/uL (130-400); RED BLOOD COUNT 2.85 x10^6/uL (3.82-5.3); RED CELL DISTRIBUTION WIDTH 17.1 % (9.6-15.2)
[2018-05-23 05:30] LABS: CHLORIDE 104 mmol/L (98-107)
[2018-05-23] MEDS: ASPIRIN 81 MG TABLET EC PO SCH (05:36)
[2018-05-23] MEDS: LEVOTHYROXINE 50 MCG TABLET PO SCH (05:36)
[2018-05-23 05:38] LABS: ALANINE AMINOTRANSFERASE 29 U/L (12-78); ALBUMIN 2.5 g/dL (3.4-5.0); ALKALINE PHOSPHATASE 64 U/L (45-117); ANION GAP 7 mmol/L (5-15); BILIRUBIN,TOTAL 0.4 mg/dL (0.2-1.0); CALCIUM 8.4 mg/dL (8.5-10.1); CREATININE 0.64 mg/dL (0.55-1.02); TOTAL PROTEIN 6.1 g/dL (6.4-8.2)
[2018-05-23 07:28] VITALS: BP 140/76
[2018-05-23] MEDS: FUROSEMIDE 20 MG/2 ML IV SCH (08:12)
[2018-05-23] MEDS: INSULIN GLARGINE 100 UNITS/ML, PEN SQ-INSULIN SCH (08:12)
[2018-05-23] MEDS: INSULIN LISPRO 100 UNITS/ML, PEN SQ-INSULIN SCH ×3 (08:12→17:08)
[2018-05-23] MEDS: metFORMIN 500 MG TABLET PO SCH (08:13)
[2018-05-23] MEDS: GABAPENTIN 300 MG CAPSULE PO SCH (08:13)
[2018-05-23] MEDS: FAMOTIDINE 20 MG TABLET PO SCH (08:13)
[2018-05-23] MEDS: ENOXAPARIN 40 MG/0.4 ML SQ SCH (08:13)
[2018-05-23] MEDS: FLUTICASONE NASAL SPRAY 16GM NAS SCH (08:19)
[2018-05-23] MEDS: SULFASALAZINE PO SCH (08:19)
[2018-05-23] MEDS ORDERED: POTASSIUM CHLORIDE 20 MEQ TAB.ER.PRT PO ONE ×2 (10:30→11:30)
[2018-05-23] MEDS ORDERED: MAGNESIUM SULFATE PMX 2GM/50ML 50 ML IV ONE (11:30)
[2018-05-23] MEDS: CEFTRIAXONE PMX 2GM/50ML 50 ML IV SCH (12:18)
[2018-05-23 12:28] VITALS: BP 120/64
[2018-05-23] MEDS: FLUCONAZOLE 100MG/50ML 100 MG in BAG 1 EACH IV SCH (13:59)
[2018-05-23] MEDS ORDERED: CEFD300C37 PO (14:53)
[2018-05-23] MEDS ORDERED: ALBU2.5V NPPB (14:53)
[2018-05-23] MEDS ORDERED: ASPI81TA45 PO (14:53)
[2018-05-23] MEDS ORDERED: DOXY100T10 PO (14:53)
[2018-05-23] MEDS ORDERED: PRED5TAB PO (14:53)
[2018-05-23] MEDS ORDERED: INSU100I11 SQ-INSULIN (14:53)
[2018-05-23] MEDS ORDERED: INSU100I13 SQ-INSULIN (14:53)
[2018-05-23] MEDS ORDERED: IPRA3AMP30 NPPB (14:53)
[2018-05-23] MEDS: ACETAMINOPHEN 325 MG TABLET PO PRN (17:00)
== END 2018-05-23 17:41 | DRG 871 ==
LOC: ED 18:58 → EDIP 20:29 → CCU 05-18 02:39 → 5SO 05-20 15:10
PROVIDERS: ADMIT Internal Medicine; ATTEND Internal Medicine
PROC: 02HV33Z Insertion of Infusion Device into Superior Vena Cava, Percutaneous Approach (ICD-10-PCS; principal; 2018-05-17)
PROC: B548ZZA Ultrasonography of Superior Vena Cava, Guidance (ICD-10-PCS; 2018-05-17)
DX: A41.9 Sepsis, unspecified organism (principal); J96.21 Acute and chronic respiratory failure with hypoxia; R65.21 Severe sepsis with septic shock; J18.1 Lobar pneumonia, unspecified organism; N17.0 Acute kidney failure with tubular necrosis; I21.4 Non-ST elevation (NSTEMI) myocardial infarction; E44.0 Moderate protein-calorie malnutrition; E87.2 Acidosis; Z99.11 Dependence on respirator [ventilator] status; J44.0 Chronic obstructive pulmonary disease with (acute) lower respiratory infection; J44.1 Chronic obstructive pulmonary disease with (acute) exacerbation; J98.11 Atelectasis; N39.0 Urinary tract infection, site not specified; Z68.35 Body mass index [BMI] 35.0-35.9, adult; B96.20 Unspecified Escherichia coli [E. coli] as the cause of diseases classified elsewhere; D64.9 Anemia, unspecified; E03.9 Hypothyroidism, unspecified; E11.65 Type 2 diabetes mellitus with hyperglycemia; E78.1 Pure hyperglyceridemia; F32.9 Major depressive disorder, single episode, unspecified; H91.90 Unspecified hearing loss, unspecified ear; I36.1 Nonrheumatic tricuspid (valve) insufficiency; I25.10 Atherosclerotic heart disease of native coronary artery without angina pectoris; I50.9 Heart failure, unspecified; K21.9 Gastro-esophageal reflux disease without esophagitis; R29.6 Repeated falls; Z90.710 Acquired absence of both cervix and uterus; Z96.651 Presence of right artificial knee joint; Z99.81 Dependence on supplemental oxygen; Z88.8 Allergy status to other drugs, medicaments and biological substances
CPT/HCPCS: 36415; 36556; 36600; 70450; 71045; 71275; 74177; 78452; 80048; 80053; 80061; 81001; 82803; 82962; 83036; 83605; 83735; 83880; 84100; 84439; 84443; 84484; 85014; 85018; 85025; 85520; 85610; 87040; 87077; 87081; 87086; 87106; 87186; 87400; 93005; 93017; 93970; 94640; 96365; 96366; 96367; 96368; 96375; 96376; C8929; G0378; J0456; J0696; J1644; J1650; J2020; J2185; J2785; J7060; J7620; Q9967; A9502; C9898; J1450; J1815; J1940; J2920; J2930; J3475; J3490; J7030; J7040; J7050; J7512

== ENCOUNTER 2019-06-05 18:36 | Inpatient (IN) | payer MEDICARE ==
[~2019-06-05] VITALS: Ht 162.6 cm; Wt 85.7 kg
[~2019-06-05 18:36] MED LIST changes: +ALBU2.5V NPPB; +ASPI81TA45 PO; +ATOR20TA PO; +CEFD300C37 PO; +DOXY100T23 PO; +GABA300C PO; -GLYB-135 PO; +GLYB1TAB16 PO; +HYDR-3240 PO; +INSU100I11 SQ-INSULIN; +INSU100I13 SQ-INSULIN; +IPRA3AMP30 NPPB; +METF500T17 PO; -OSEL75CA PO; +OSEL75CA26 PO; +PHENERGAN CODEINE PO; +PRED5TAB PO; +RANI-467 PO; -RANI150T23 PO; +SITA1TAB PO; +ZOLP-413 PO
[2019-06-05 19:14] LABS: BASOPHILS # (AUTO) 0.02 x10^3/uL (0-0.1); BASOPHILS % (AUTO) 0 % (0-1); EOSINOPHILS # (AUTO) 0.16 x10^3/uL (0-0.4); EOSINOPHILS % (AUTO) 2 % (1-7); LYMPHOCYTES # (AUTO) 1.95 x10^3/uL (1-3.4); LYMPHOCYTES % (AUTO) 28 % (22-44); MD NO; MEAN CORPUSCULAR HEMOGLOBIN 26.4 pg (27.0-34.8); MEAN CORPUSCULAR HGB CONC 32.1 g/dL (32.4-35.8); MEAN CORPUSCULAR VOLUME 82.3 fL (80-100); MEAN PLATELET VOLUME 6.9 fL (7.4-10.4); MONOCYTES # (AUTO) 0.67 x10^3/uL (0.2-0.8); MONOCYTES % (AUTO) 10 % (2-9); NEUTROPHILS # (AUTO) 4.15 x10^3/uL (1.8-6.8); NEUTROPHILS % (AUTO) 60 % (42-75); PLATELET COUNT 278 x10^3/uL (130-400); RED BLOOD COUNT 3.59 x10^6/uL (3.82-5.3); RED CELL DISTRIBUTION WIDTH 18.3 % (9.6-15.2)
[2019-06-05 19:24] LABS: ALBUMIN 3.5 g/dL (3.4-5.0); ANION GAP 6 mmol/L (5-15); CALCIUM 9.3 mg/dL (8.5-10.1); CHLORIDE 104 mmol/L (98-107)
[2019-06-05] MEDS ORDERED: methylPREDNISolone SOD SUCC 125 MG/2 ML ONE (19:28)
[2019-06-05] MEDS ORDERED: LEVOFLOXACIN/PMX 500MG/100ML 100 ML ONE (19:28)
[2019-06-05] MEDS ORDERED: ALBUTEROL/IPRATROPIUM 2.5MG/0.5MG, 3 ML NPPB ONE (19:30)
[2019-06-05] MEDS ORDERED: SODIUM CHLORIDE FLUSH 10ML SYR IVF ONE (19:30)
[2019-06-05] MEDS ORDERED: LEVOFLOXACIN/PMX 500MG/100ML 100 ML IV ONE (19:30)
[2019-06-05] MEDS ORDERED: methylPREDNISolone SOD SUCC 125 MG/2 ML IV ONE (19:30)
[2019-06-05] MEDS ORDERED: SODIUM CHLORIDE 0.9% 1,000ML IVBOLUS ONE (19:30)
[2019-06-05 19:39] LABS: TROPONIN I < 0.015 ng/mL (0.000-0.045)
[2019-06-05] MEDS ORDERED: ALBUTEROL/IPRATROPIUM 2.5MG/0.5MG, 3 ML ONE (19:54)
[2019-06-05] MEDS ORDERED: ENALAPRILAT 1.25 MG/ML, 2ML IVPush PRN (21:30)
[2019-06-05] MEDS ORDERED: TEMAZEPAM 15 MG CAPSULE PO PRN (21:30)
[2019-06-05] MEDS ORDERED: GUAIFENESIN/DM 200-20MG, 10ML UDC PO PRN (21:30)
[2019-06-05] MEDS ORDERED: BISACODYL 10 MG SUPP PR PRN (21:30)
[2019-06-05] MEDS ORDERED: LIDODERM 5% PATCH TD PRN (21:30)
[2019-06-05] MEDS: ENOXAPARIN 40 MG/0.4 ML SQ SCH (22:34)
[2019-06-05 22:53] VITALS: BP 103/64
[2019-06-05] MEDS ORDERED: GABA300C10 PO (23:17)
[2019-06-05] MEDS ORDERED: NITR100C56 PO (23:17)
[2019-06-05] MEDS ORDERED: SITA1TAB5 PO (23:17)
[2019-06-05 23:49] VITALS: BP 114/68
[2019-06-06 03:09] VITALS: BP 136/72
[2019-06-06] MEDS: ACETAMINOPHEN 325 MG TABLET PO PRN ×2 (03:17→20:43)
[2019-06-06 05:23] LABS: ANION GAP 5 mmol/L (5-15); CALCIUM 8.7 mg/dL (8.5-10.1); CHLORIDE 107 mmol/L (98-107); CREATININE 0.71 mg/dL (0.55-1.02)
[2019-06-06] MEDS ORDERED: ALBUTEROL/IPRATROPIUM 2.5MG/0.5MG, 3 ML ONE (06:26)
[2019-06-06 07:20] LABS: BASOPHILS % (AUTO) 0 % (0-1); EOSINOPHILS % (AUTO) 0 % (1-7); LYMPHOCYTES # (AUTO) 0.89 x10^3/uL (1-3.4); LYMPHOCYTES % (AUTO) 19 % (22-44); MD NO; MEAN CORPUSCULAR HEMOGLOBIN 27.2 pg (27.0-34.8); MEAN CORPUSCULAR HGB CONC 31.9 g/dL (32.4-35.8); MEAN CORPUSCULAR VOLUME 85.2 fL (80-100); MEAN PLATELET VOLUME 7.1 fL (7.4-10.4); MONOCYTES # (AUTO) 0.09 x10^3/uL (0.2-0.8); MONOCYTES % (AUTO) 2 % (2-9); NEUTROPHILS # (AUTO) 3.67 x10^3/uL (1.8-6.8); NEUTROPHILS % (AUTO) 79 % (42-75); PLATELET COUNT 233 x10^3/uL (130-400); RED BLOOD COUNT 3.06 x10^6/uL (3.82-5.3); RED CELL DISTRIBUTION WIDTH 17.9 % (9.6-15.2)
[2019-06-06] MEDS: ALBUTEROL/IPRATROPIUM 2.5MG/0.5MG, 3 ML NPPB SCH ×3 (07:24→19:44)
[2019-06-06] MEDS: methylPREDNISolone SOD SUCC 40 MG/ML IVPush SCH ×3 (08:33→20:33)
[2019-06-06 11:24] VITALS: BP 129/71
[2019-06-06 13:38] VITALS: BP 122/65
[2019-06-06] MEDS: GABAPENTIN 300 MG CAPSULE PO SCH ×2 (16:05→20:32)
[2019-06-06 19:21] VITALS: BP 146/72
[2019-06-06] MEDS ORDERED: LEVOFLOXACIN/PMX 500MG/100ML 100 ML IV SCH (20:00)
[2019-06-06] MEDS: ENOXAPARIN 40 MG/0.4 ML SQ SCH (20:33)
[2019-06-06] MEDS: INSULIN GLARGINE 100 UNITS/ML, PEN SQ-INSULIN SCH (20:57)
[2019-06-06] MEDS ORDERED: CITALOPRAM 20 MG TABLET PO SCH (21:00)
[2019-06-06] MEDS ORDERED: ATORVASTATIN 20 MG TABLET PO SCH (21:00)
[2019-06-07 00:47] VITALS: BP 149/67
[2019-06-07] MEDS: ALBUTEROL/IPRATROPIUM 2.5MG/0.5MG, 3 ML NPPB SCH ×4 (03:00→14:50)
[2019-06-07] MEDS: methylPREDNISolone SOD SUCC 40 MG/ML IVPush SCH ×2 (03:17→09:31)
[2019-06-07 05:53] LABS: BASOPHILS # (AUTO) 0.01 x10^3/uL (0-0.1); BASOPHILS % (AUTO) 0 % (0-1); EOSINOPHILS # (AUTO) 0.07 x10^3/uL (0-0.4); EOSINOPHILS % (AUTO) 1 % (1-7); LYMPHOCYTES # (AUTO) 0.91 x10^3/uL (1-3.4); LYMPHOCYTES % (AUTO) 11 % (22-44); MD NO; MEAN CORPUSCULAR HEMOGLOBIN 28.5 pg (27.0-34.8); MEAN CORPUSCULAR HGB CONC 32.5 g/dL (32.4-35.8); MEAN CORPUSCULAR VOLUME 87.7 fL (80-100); MEAN PLATELET VOLUME 7.3 fL (7.4-10.4); MONOCYTES # (AUTO) 0.33 x10^3/uL (0.2-0.8); MONOCYTES % (AUTO) 4 % (2-9); NEUTROPHILS # (AUTO) 6.97 x10^3/uL (1.8-6.8); NEUTROPHILS % (AUTO) 84 % (42-75); PLATELET COUNT 237 x10^3/uL (130-400); RED BLOOD COUNT 2.94 x10^6/uL (3.82-5.3); RED CELL DISTRIBUTION WIDTH 18.3 % (9.6-15.2)
[2019-06-07 05:58] LABS: CALCIUM 9.1 mg/dL (8.5-10.1); CHLORIDE 110 mmol/L (98-107)
[2019-06-07] MEDS ORDERED: ASPIRIN 81 MG TABLET EC PO SCH (06:00)
[2019-06-07] MEDS ORDERED: LEVOTHYROXINE 50 MCG TABLET PO SCH ×2 (06:00→09:00)
[2019-06-07 06:01] LABS: ANION GAP 5 mmol/L (5-15); CREATININE 0.67 mg/dL (0.55-1.02)
[2019-06-07] MEDS ORDERED: SULFASALAZINE HOMEMEDPO SCH (09:00)
[2019-06-07] MEDS ORDERED: FLUTICASONE NASAL SPRAY 16GM NAS SCH (09:00)
[2019-06-07] MEDS: INSULIN GLARGINE 100 UNITS/ML, PEN SQ-INSULIN SCH (09:00)
[2019-06-07] MEDS ORDERED: INSULIN GLARGINE 100 UNITS/ML, PEN SQ-INSULIN SCH (09:00)
[2019-06-07] MEDS ORDERED: PANTOPROZOLE 40MG TABLET PO SCH (09:00)
[2019-06-07] MEDS ORDERED: POTASSIUM CHLORIDE 10 MEQ TABLET.ER PO SCH (09:00)
[2019-06-07] MEDS ORDERED: FUROSEMIDE 20 MG TABLET PO SCH (09:00)
[2019-06-07 09:17] VITALS: BP 115/66
[2019-06-07] MEDS: GABAPENTIN 300 MG CAPSULE PO SCH ×2 (09:30→16:55)
[2019-06-07] MEDS ORDERED: CEFTRIAXONE PMX 1GM/50ML 50 ML IV SCH (11:00)
[2019-06-07] MEDS ORDERED: CEFD300C37 PO (11:06)
[2019-06-07] MEDS ORDERED: DOXY100T PO (11:06)
[2019-06-07] MEDS ORDERED: LACT1CAP35 PO (11:06)
[2019-06-07] MEDS ORDERED: PRED20TA PO (11:06)
[2019-06-07] MEDS ORDERED: LOPERAMIDE 2 MG CAPSULE PO PRN (11:30)
[2019-06-07] MEDS ORDERED: DOXYCYCLINE 100 MG in DEXTROSE 5% 250 ML IV SCH (12:00)
[2019-06-07] MEDS: LACTOBACILLUS CHEW TABLET PO SCH ×2 (12:59→16:55)
[2019-06-07 14:47] VITALS: BP 128/72
[2019-06-07] MEDS ORDERED: SODIUM CHLORIDE 0.9%, 500ML IVBOLUS ONE (15:00)
== END 2019-06-07 17:28 | disposition home or self-care (01) | DRG 177 ==
LOC: ED 19:05 → EDIP 19:15 → ED 19:58 → 3N 21:32
PROVIDERS: ADMIT Internal Medicine; ATTEND Internal Medicine
DX: J15.6 Pneumonia due to other Gram-negative bacteria (principal); J96.21 Acute and chronic respiratory failure with hypoxia; N39.0 Urinary tract infection, site not specified; J44.0 Chronic obstructive pulmonary disease with (acute) lower respiratory infection; J44.1 Chronic obstructive pulmonary disease with (acute) exacerbation; D64.9 Anemia, unspecified; D89.9 Disorder involving the immune mechanism, unspecified; E03.9 Hypothyroidism, unspecified; E11.42 Type 2 diabetes mellitus with diabetic polyneuropathy; E78.5 Hyperlipidemia, unspecified; H91.90 Unspecified hearing loss, unspecified ear; I10 Essential (primary) hypertension; K21.9 Gastro-esophageal reflux disease without esophagitis; K52.9 Noninfective gastroenteritis and colitis, unspecified; T38.0X5A Adverse effect of glucocorticoids and synthetic analogues, initial encounter; Z79.4 Long term (current) use of insulin; Z79.52 Long term (current) use of systemic steroids; Z80.0 Family history of malignant neoplasm of digestive organs; Z80.3 Family history of malignant neoplasm of breast; Z82.49 Family history of ischemic heart disease and other diseases of the circulatory system; Z90.710 Acquired absence of both cervix and uterus; Z87.891 Personal history of nicotine dependence; Z88.8 Allergy status to other drugs, medicaments and biological substances
CPT/HCPCS: 36415; 80048; 82040; 82962; 83605; 83880; 84484; 85025; 87040; 87070; 87205; 93005; 94640; 99285; G0378; J0696; J1650; J1956; J7060; J7620; J1815; J2920; J2930; J7030; J7040; J7512

== ENCOUNTER → 2019-10-22 | Outpatient (CLI) | payer MEDICARE ==
[~2019-10-22] MED LIST changes: +DOXY100T PO; +GABA300C10 PO; +LACT1CAP35 PO; +NITR100C56 PO; +PRED20TA PO; +REGADENOSON 0.4 MG/5 ML SYRINGE ONE; +SITA1TAB5 PO
== END | disposition home or self-care (01) ==
LOC: CFH 12:30
PROVIDERS: ATTEND Internal Medicine Cardiovascular Disease
DX: I07.1 Rheumatic tricuspid insufficiency (principal); I25.10 Atherosclerotic heart disease of native coronary artery without angina pectoris; I21.29 ST elevation (STEMI) myocardial infarction involving other sites
CPT/HCPCS: 78452; 93017; 93306; A9502; J2785

== ENCOUNTER → 2019-12-11 | Outpatient (CLI) | payer MEDICARE ==
[~2019-12-11] MED LIST changes: -REGADENOSON 0.4 MG/5 ML SYRINGE ONE
== END | disposition home or self-care (01) ==
LOC: CFH 14:19
PROVIDERS: ATTEND Nurse Practitioner Family
DX: R91.1 Solitary pulmonary nodule (principal)
CPT/HCPCS: 71250

== ENCOUNTER 2020-02-10 23:25 | Observation (INO) | payer MEDICARE ==
[~2020-02-10] VITALS: Ht 162.6 cm; Wt 84.2 kg
[~2020-02-10 23:25] MED LIST changes: -PANT40TA5 PO; +PANT40TA6 PO
[2020-02-10] MEDS ORDERED: MORPHINE SULFATE 4 MG/ML, 1ML ONE (23:39)
[2020-02-11] MEDS ORDERED: MORPHINE SULFATE 4 MG/ML, 1ML IVPush PRN
[2020-02-11] MEDS ORDERED: ipratropium (00:28)
[2020-02-11] MEDS ORDERED: FOLI0.8T2 PO (00:28)
[2020-02-11] MEDS ORDERED: FEXO180T15 PO (00:28)
[2020-02-11] MEDS ORDERED: HYDR-3237 PO ×2 (00:28→14:23)
[2020-02-11] MEDS ORDERED: ZOLP5TAB6 PO (00:28)
[2020-02-11] MEDS ORDERED: DOCUSATE 100 MG CAPSULE PO PRN (01:00)
[2020-02-11] MEDS ORDERED: ACETAMINOPHEN 325 MG TABLET PO PRN (01:00)
[2020-02-11] MEDS ORDERED: LABETALOL 5MG/ML, 20ML IVPush PRN (01:00)
[2020-02-11] MEDS ORDERED: ZOLPIDEM 5MG TABLET PO SCH (01:00)
[2020-02-11] MEDS ORDERED: morphine SULFATE 10 MG/ML, 1ML IVPush PRN (01:00)
[2020-02-11] MEDS ORDERED: ATORVASTATIN 20 MG TABLET ONE (01:55)
[2020-02-11] MEDS ORDERED: GABAPENTIN 300 MG CAPSULE ONE (01:56)
[2020-02-11] MEDS ORDERED: PANTOPRAZOLE 40MG TABLET ONE (01:56)
[2020-02-11] MEDS ORDERED: CITALOPRAM 20 MG TABLET ONE (01:56)
[2020-02-11] MEDS: PANTOPRAZOLE 40MG TABLET PO SCH ×2 (02:07→09:09)
[2020-02-11 02:30] VITALS: BP 189/68
[2020-02-11 02:50] VITALS: BP 182/83
[2020-02-11] MEDS ORDERED: ALBUTEROL/IPRATROPIUM 2.5MG/0.5MG, 3 ML NPPB SCH (03:00)
[2020-02-11] MEDS ORDERED: ALBUTEROL-IPRATROPIUM MDI INH INH SCH (06:00)
[2020-02-11] MEDS ORDERED: LEVOTHYROXINE 50 MCG TABLET PO SCH (06:00)
[2020-02-11] MEDS: INSULIN LISPRO 100 UNITS/ML, PEN SQ-INSULIN SCH ×2 (07:00→13:21)
[2020-02-11 07:39] VITALS: BP 109/65
[2020-02-11] MEDS ORDERED: GLUCAGON 1 MG IM PRN (08:00)
[2020-02-11] MEDS ORDERED: DEXTROSE 50%, 50ML SYRINGE IVPush PRN (08:00)
[2020-02-11] MEDS ORDERED: DEXTROSE 4 GM TAB.CHEW PO PRN (08:00)
[2020-02-11 08:57] LABS: BASOPHILS % (AUTO) 0 % (0-1); EOSINOPHILS % (AUTO) 1 % (1-7); LYMPHOCYTES % (AUTO) 27 % (22-44); MEAN CORPUSCULAR HEMOGLOBIN 29.7 pg (27.0-34.8); MEAN CORPUSCULAR HGB CONC 33.2 g/dL (32.4-35.8); MEAN PLATELET VOLUME 7.7 fL (7.4-10.4); MONOCYTES % (AUTO) 9 % (2-9); NEUTROPHILS % (AUTO) 63 % (42-75); PLATELET COUNT 173 x10^3/uL (130-400); RED CELL DISTRIBUTION WIDTH 15.5 % (9.6-15.2)
[2020-02-11] MEDS ORDERED: FUROSEMIDE 20 MG TABLET PO SCH ×2 (09:00→11:30)
[2020-02-11] MEDS ORDERED: metFORMIN 500 MG TABLET PO SCH (09:00)
[2020-02-11] MEDS ORDERED: CETIRIZINE 10 MG TABLET PO SCH (09:00)
[2020-02-11] MEDS ORDERED: TEMPLATE NON-FORMULARY MED. (Fexofenadine Hcl** 180 MG) PO SCH (09:00)
[2020-02-11] MEDS ORDERED: POTASSIUM CHLORIDE 10 MEQ TABLET.ER PO SCH (09:00)
[2020-02-11] MEDS ORDERED: GABAPENTIN 300 MG CAPSULE PO SCH ×2 (09:00)
[2020-02-11] MEDS ORDERED: SODIUM CHLORIDE FLUSH 10ML SYR IVF SCH (09:00)
[2020-02-11 09:08] LABS: ANION GAP 6 mmol/L (5-15); CALCIUM 9.2 mg/dL (8.5-10.1); CHLORIDE 106 mmol/L (98-107); CREATININE 0.88 mg/dL (0.55-1.02); MD NO
[2020-02-11] MEDS ORDERED: ALBUTEROL-IPRATROPIUM MDI INH INH PRN (10:30)
[2020-02-11] MEDS ORDERED: HYDROcodone/APAP 5/325 TABLET PO PRN (11:00)
[2020-02-11] MEDS ORDERED: LIDODERM 5% PATCH TD SCH (11:00)
[2020-02-11] MEDS ORDERED: METFORMIN HCL HOMEMEDPO SCH (11:30)
[2020-02-11] MEDS ORDERED: SITAGLIPTIN PHOS HOMEMEDPO SCH (11:30)
[2020-02-11 13:33] VITALS: BP 84/48
[2020-02-11] MEDS ORDERED: CELE200C PO (14:23)
[2020-02-11] MEDS ORDERED: LIDO700A20 TD (14:23)
[2020-02-11 15:48] VITALS: BP 119/74
[2020-02-11] MEDS ORDERED: CITALOPRAM 20 MG TABLET PO SCH (21:00)
[2020-02-11] MEDS ORDERED: ATORVASTATIN 20 MG TABLET PO SCH (21:00)
== END 2020-02-11 16:20 ==
LOC: ED 23:59 → EDIP 02-11 00:49 → INTOOBSV 02-11 00:49 → 4NE 02-11 01:15
PROVIDERS: ADMIT Family Medicine; ATTEND Family Medicine
DX: S42.302A Unspecified fracture of shaft of humerus, left arm, initial encounter for closed fracture (principal); I10 Essential (primary) hypertension; J44.9 Chronic obstructive pulmonary disease, unspecified; J96.11 Chronic respiratory failure with hypoxia; D64.9 Anemia, unspecified; F32.9 Major depressive disorder, single episode, unspecified; E11.9 Type 2 diabetes mellitus without complications; E78.5 Hyperlipidemia, unspecified; E03.9 Hypothyroidism, unspecified; Z88.0 Allergy status to penicillin; Z79.899 Other long term (current) drug therapy; Z79.82 Long term (current) use of aspirin; Z79.4 Long term (current) use of insulin; Z90.710 Acquired absence of both cervix and uterus; Z99.81 Dependence on supplemental oxygen; Z87.891 Personal history of nicotine dependence; W01.0XXA Fall on same level from slipping, tripping and stumbling without subsequent striking against object, initial encounter; Y93.01 Activity, walking, marching and hiking; Y92.009 Unspecified place in unspecified non-institutional (private) residence as the place of occurrence of the external cause
CPT/HCPCS: 73060; 80048; 82962; 85025; 96374; 96375; 96376; 97162; 97166; 99284; G0378; J1815; J2270